=== PATIENT | male | born 1985 | race Caucasian/White ===

== ENCOUNTER 2024-10-09 15:36 | Outpatient (OUT) | payer OTHER, SELFPAY ==
--- NOTE | 2024-10-09 15:49 | XR_ITS ---
The [address] [address] Patient Name: EVELYNE POZO MRN: [id number] date: 1985 Sex: M Assigned Patient Location: [facility] Current Patient Location: Accession/Order Number: [id number] Exam Date: 10/09/2024 16:03 Report Date: 10/10/2024 06:04 At the request of: YESENIA CHURCHILL Procedure: XR knee CHAR 3V EXAMINATION: XR knee CHAR 3V HISTORY: Bilateral Knee Osteoarthritis COMPARISON: No relevant comparison available. FINDINGS: RIGHT FINDINGS: BONES: No significant arthropathy or acute abnormality. SOFT TISSUES: No visible soft tissue swelling. OTHER: Negative. LEFT FINDINGS: BONES: No fracture, dislocation, bone lesion. Tiny degenerative osteophytes along the articular margins of patella. SOFT TISSUES: No visible soft tissue swelling. OTHER: Negative. XR/XR knee CHAR 3V IMPRESSION: RIGHT CONCLUSION: No acute abnormality or significant degenerative changes. LEFT CONCLUSION: No acute abnormality. Minimal degenerative changes of patella. Electronically authenticated by: KATHY VALDEZ Date: 10/10/2024 06:04
== END 2024-10-09 15:37 | disposition home or self-care (01) ==
PROVIDERS: PCP Chiropractor; Visit Provider Chiropractor
DX: M17.0 Bilateral primary osteoarthritis of knee (principal)
CPT/HCPCS: 73562